=== PATIENT | male | born 1970 | race Two or more races ===

== ENCOUNTER 2020-08-23 13:44 | Emergency (ER) | payer MEDICAID, OTHER ==
[~2020-08-23] VITALS: Ht 165.1 cm; Wt 74.8 kg
[2020-08-23 13:47] VITALS: BP 130/93
[2020-08-23] MEDS ORDERED: LIDOCAINE 1% HCL (LOCAL ANESTH.) INJ 20ML MDV ONE (14:33)
[2020-08-23] MEDS ORDERED: TETANUS-DIPTH-ACEL PERTUSSIS 0.5ML SYR Tdap IM ONE (14:45)
[2020-08-23] MEDS ORDERED: cefTRIAXone SOD 1,000 MG VL IM ONE (15:45)
== END 2020-08-23 16:23 | disposition home or self-care (01) ==
LOC: ER 13:44
DX: S62.663A Nondisplaced fracture of distal phalanx of left middle finger, initial encounter for closed fracture (principal); S61.213A Laceration without foreign body of left middle finger without damage to nail, initial encounter; W22.8XXA Striking against or struck by other objects, initial encounter; Y93.89 Activity, other specified; Y92.89 Other specified places as the place of occurrence of the external cause; Y99.8 Other external cause status
CPT/HCPCS: 12002; 73140; 90471; 90715; 96372; 99284; J0696; J2001

== ENCOUNTER 2023-09-06 12:55 | Inpatient (IN) | payer BC, OTHER ==
[~2023-09-06] VITALS: Ht 165.1 cm; Wt 72.0 kg
[2023-09-06 13:41] LABS: Basophils # (auto) 0 10 ^3/uL (0-0.2); Eosinophils # (auto) 0 10 ^3/uL (0-0.8); Monocytes # (auto) 0.5 10 ^3/uL (0-1.3)
[2023-09-06 13:43] LABS: Basophils % (auto) 0.5 % (0.0-2.0); Eosinophils % (auto) 0.3 % (0.0-7.0); Hematocrit 23.2 % (41.0-53.0); Lymphocytes # (auto) 1.5 10 ^3/uL (0.4-5.4); Lymphocytes % (auto) 24.2 % (10.0-50.0); Mean Corpuscular Hemoglobin 21.1 pg (28.0-32.0); Mean Corpuscular Hgb Conc. 28.6 g/dL (32.0-36.0); Mean Corpuscular Volume 73.8 fL (80.0-100.0); Monocytes % (auto) 7.6 % (0.0-12.0); Neutrophils # (auto) 4.2 10 ^3/uL (1.6-8.6); Neutrophils % (auto) 67.4 % (37.0-80.0); Nucleated Red Blood Cells % 0.6 %; Red Blood Cells 3.14 10^6/uL (4.5-5.90); White Blood Cell 6.2 10^3/uL (4.4-10.8)
[2023-09-06 13:51] LABS: Chloride 107 mmol/L (98-107); Potassium 3.7 mmol/L (3.5-5.1); Sodium 139 mmol/L (136-145)
[2023-09-06 13:52] LABS: Anion Gap 6 (5-15); Carbon Dioxide 26 mmol/L (20-30)
[2023-09-06 13:57] LABS: Blood Urea Nitrogen 10 mg/dL (9-23); Glucose 96 mg/dL (74-106)
[2023-09-06 14:00] LABS: INR 1.06 (0.9-1.15); Partial Thromboplastin Time 24.8 SEC (24.5-34.5); Prothrombin Time 11.1 sec (9.3-11.8)
[2023-09-06 14:29] LABS: Red Cell Distribution Width 29.1 % (11.8-14.3)
[2023-09-06 14:33] LABS: Hemoglobin 6.6 g/dL (13.5-17.5)
[2023-09-06] MEDS ORDERED: DOCUSATE SOD 100 MG CAP PO PRN (15:30)
[2023-09-06] MEDS ORDERED: ONDANSETRON HCL 4 MG/2 ML VIAL IV PRN (15:30)
[2023-09-06 16:02] LABS: Hematocrit 24.1 % (41.0-53.0)
[2023-09-06 16:16] LABS: Ferritin 4.4 ng/mL (22-322)
[2023-09-06 16:17] LABS: Folate (Folic Acid) > 24.00 ng/mL (>5.38)
[2023-09-06 16:30] LABS: Hemoglobin 6.7 g/dL (13.5-17.5)
[2023-09-06 17:01] LABS: % Iron Saturation 3.3 % (20-55)
[2023-09-06 21:00] VITALS: PULSE 95; RESP 12; O2SAT 98
[2023-09-06 22:15] LABS: Hematocrit 21.1 % (41.0-53.0)
[2023-09-06 22:31] LABS: Hemoglobin 6.1 g/dL (13.5-17.5)
[2023-09-06] MEDS: PANTOPRAZOLE 40 MG/10 ML VIAL INJ IV SCH (22:39)
[2023-09-06] MEDS: SODIUM CHLORIDE 0.9% 1,000 ML IV SCH ×2 (22:48→23:50)
[2023-09-06 23:15] VITALS: BP 116/63; PULSE 90; RESP 18; TEMP 98.4
[2023-09-06 23:30] VITALS: BP 111/63; PULSE 87; RESP 16; TEMP 98.4
[2023-09-06 23:45] VITALS: BP 104/65; PULSE 73; RESP 18; TEMP 98.6
[2023-09-07] VITALS (9 sets, daily range): BP systolic 101–125; BP diastolic 63–72; PULSE 73–94; RESP 14–20; TEMP 98–98.8; O2SAT 93–95
[2023-09-07] MEDS: MORPHINE SULFATE INJ 2 MG/ml SYRG IV PRN ×2 (04:15→10:05)
[2023-09-07 06:33] LABS: Hemoglobin 8.3 g/dL (13.5-17.5); Mean Corpuscular Hemoglobin 23.6 pg (28.0-32.0)
[2023-09-07 06:36] LABS: Hematocrit 27.3 % (41.0-53.0); Mean Corpuscular Hgb Conc. 30.6 g/dL (32.0-36.0); Mean Corpuscular Volume 77.1 fL (80.0-100.0); Red Blood Cells 3.54 10^6/uL (4.5-5.90); White Blood Cell 5.7 10^3/uL (4.4-10.8)
[2023-09-07 06:39] LABS: Alanine Aminotransferase 22 U/L (7-40); Alkaline Phosphatase 54 U/L (46-116); Anion Gap 6 (5-15); BUN/Creatinine Ratio 10.1 (10.0-20.0); Blood Urea Nitrogen 9 mg/dL (9-23); Calcium 8.7 mg/dL (8.5-10.1); Carbon Dioxide 24 mmol/L (20-30); Chloride 109 mmol/L (98-107); Glucose 98 mg/dL (74-106); Potassium 3.9 mmol/L (3.5-5.1); Sodium 139 mmol/L (136-145)
[2023-09-07 06:40] LABS: Albumin 3.8 g/dL (3.2-4.8); Aspartate Aminotransferase 16 U/L (13-40); Bilirubin, Total 0.7 mg/dL (0.2-1.0)
[2023-09-07 07:27] LABS: Red Cell Distribution Width 26.4 % (11.8-14.3)
[2023-09-07 07:29] LABS: Band Neutrophils % (manual) 0; Basophils % (manual) 0 (0.0-2.0); Blast Cells 0; Metamyelocytes % 0; Myelocytes % 0; Promyelocytes % 0; Reactive Lymphocytes 0
[2023-09-07] MEDS: SODIUM CHLORIDE 0.9% 1,000 ML IV SCH ×3 (08:14→21:15)
[2023-09-07 08:17] LABS: Anisocytosis Moderate; Eosinophils % (manual) 1 (0-7); Hypochromia Moderate; Lymphocytes % (manual) 18 (10.0-50.0); Monocytes % (manual) 9 (0-12); Platelet Estimate Adequate
[2023-09-07 08:18] LABS: Ovalocytes MODERATE
[2023-09-07] MEDS: PANTOPRAZOLE 40 MG/10 ML VIAL INJ IV SCH ×2 (10:04→22:12)
[2023-09-07 10:29] LABS: Hemoglobin 8.6 g/dL (13.5-17.5)
[2023-09-07 10:31] LABS: Hematocrit 28.5 % (41.0-53.0)
[2023-09-07] MEDS: IRON SUCROSE COMPLEX 100 ML IV SCH (12:00)
[2023-09-07 22:07] LABS: Hemoglobin 8.7 g/dL (13.5-17.5)
[2023-09-08] VITALS (8 sets, daily range): BP systolic 102–117; BP diastolic 61–72; PULSE 68–79; RESP 18–20; TEMP 98.5–99.1; O2SAT 93–96
[2023-09-08 03:03] LABS: Urine Epithelial Cast None Seen /hpf (<5)
[2023-09-08 03:13] LABS: Urine Bacteria NONE SEEN /hpf (None Seen); Urine Blood Negative /uL (Negative); Urine Clarity Clear (Clear); Urine Color Colorless (Yellow); Urine Protein, UAD Negative (Negative); Urine Specific Gravity 1.009 (1.001-1.035); Urine Urobilinogen Normal (Negative); Urine WBC 1 /hpf (0 - 3); Urine pH 5.5 (5.0-8.0)
[2023-09-08] MEDS: SODIUM CHLORIDE 0.9% 1,000 ML IV SCH (04:21)
[2023-09-08] MEDS ORDERED: SODIUM CHLORIDE LOCK 10 ML ONE (08:45)
[2023-09-08] MEDS ORDERED: LIDOCAINE VISCOUS 2% 15ML UD ONE (08:45)
[2023-09-08] MEDS: PANTOPRAZOLE 40 MG/10 ML VIAL INJ IV SCH (10:16)
[2023-09-08] MEDS: IRON SUCROSE COMPLEX 100 ML IV SCH (12:00)
[2023-09-08] MEDS: MIDAZOLAM HCL 5 MG/ML-1ML VIAL ONE ×2 (12:40→12:46)
[2023-09-08] MEDS: fentaNYL CITRATE 100 MCG/2 ML VL ONE ×2 (12:40→12:46)
[2023-09-08] MEDS: diphenhdrAMINE HCL 50 MG/1 ML VL ONE ×2 (12:40→12:43)
[2023-09-08] MEDS ORDERED: GOLYTELY 4L KIT PO ONE (15:45)
[2023-09-08] MEDS ORDERED: PANT40TA2 PO (16:12)
[2023-09-08] MEDS ORDERED: FERR-7 PO (16:12)
[2023-09-09] MEDS ORDERED: MAGNESIUM CITRATE SOLUTION 300 ML BTL PO ONE (01:00)
== END 2023-09-08 17:57 | disposition home or self-care (01) | DRG 378 ==
LOC: ER 12:55 → OVERFLOW 15:35 → WEST WING 09-07 09:13
PROVIDERS: ADMIT Nurse Practitioner Family; ATTEND Nurse Practitioner Acute Care
PROC: 0DB78ZX Excision of Stomach, Pylorus, Via Natural or Artificial Opening Endoscopic, Diagnostic (ICD-10-PCS; principal; 2023-09-08 12:32)
DX: K92.1 Melena (principal); D62 Acute posthemorrhagic anemia; K64.8 Other hemorrhoids; K29.90 Gastroduodenitis, unspecified, without bleeding; N20.0 Calculus of kidney; I10 Essential (primary) hypertension; K29.70 Gastritis, unspecified, without bleeding; Z86.73 Personal history of transient ischemic attack (TIA), and cerebral infarction without residual deficits
CPT/HCPCS: 36415; 71045; 74176; 80048; 80053; 81001; 82378; 82607; 82728; 82746; 83540; 83550; 83615; 85007; 85014; 85018; 85025; 85027; 85045; 85610; 85730; 86850; 86900; 86901; 86920; 93005; C9113; G0378; J2250; J2405

== ENCOUNTER → 2024-02-08 | Day surgery (SDC) | payer BC ==
[2024-02-07 09:13] LABS: Basophils # (auto) 0 10 ^3/uL (0-0.2); Basophils % (auto) 0.5 % (0.0-2.0); Eosinophils # (auto) 0.1 10 ^3/uL (0-0.8); Eosinophils % (auto) 2.8 % (0.0-7.0); Hematocrit 41.9 % (41.0-53.0); Hemoglobin 13.8 g/dL (13.5-17.5); Lymphocytes # (auto) 1.2 10 ^3/uL (0.4-5.4); Lymphocytes % (auto) 32.8 % (10.0-50.0); Mean Corpuscular Hemoglobin 31.1 pg (28.0-32.0); Mean Corpuscular Hgb Conc. 32.9 g/dL (32.0-36.0); Mean Corpuscular Volume 94.7 fL (80.0-100.0); Monocytes # (auto) 0.4 10 ^3/uL (0-1.3); Monocytes % (auto) 9.7 % (0.0-12.0); Neutrophils % (auto) 54.2 % (37.0-80.0); Nucleated Red Blood Cells % 0.1 %; Red Blood Cells 4.42 10^6/uL (4.5-5.90); Red Cell Distribution Width 15.1 % (11.8-14.3); White Blood Cell 3.7 10^3/uL (4.4-10.8)
[2024-02-07 09:39] LABS: INR 1.01 (0.9-1.15); Partial Thromboplastin Time 26.9 SEC (24.5-34.5); Prothrombin Time 10.7 sec (9.3-11.8)
[2024-02-07 10:39] LABS: Alanine Aminotransferase 30 U/L (7-40); Albumin 4.4 g/dL (3.2-4.8); Alkaline Phosphatase 74 U/L (46-116); Anion Gap 8 (5-15); Aspartate Aminotransferase 15 U/L (13-40); BUN/Creatinine Ratio 14.3 (10.0-20.0); Bilirubin, Total 0.8 mg/dL (0.2-1.0); Blood Urea Nitrogen 12 mg/dL (9-23); Calcium 9.5 mg/dL (8.5-10.1); Carbon Dioxide 27 mmol/L (20-30); Chloride 105 mmol/L (98-107); Glucose 91 mg/dL (74-106); Sodium 140 mmol/L (136-145)
[~2024-02-08] VITALS: Ht 165.1 cm; Wt 73.5 kg
[~2024-02-08] MED LIST: FERR-7 PO; LIDOCAINE 2% JELLY 11ml (GLYDO) ONE; SODIUM CHLORIDE LOCK 10 ML ONE
[2024-02-08 10:24] VITALS: TEMP 97.4
[2024-02-08 10:58] VITALS: PULSE 69; RESP 18; O2SAT 100
[2024-02-08] MEDS: MIDAZOLAM HCL 5 MG/ML-1ML VIAL ONE (11:13)
[2024-02-08] MEDS: diphenhdrAMINE HCL 50 MG/1 ML VL ONE (11:13)
[2024-02-08] MEDS: fentaNYL CITRATE 100 MCG/2 ML VL ONE (11:13)
[2024-02-08 11:30] VITALS: PULSE 59; RESP 16; O2SAT 100
[2024-02-08 12:00] VITALS: BP 118/67; PULSE 57; RESP 14; O2SAT 94
== END | disposition home or self-care (01) ==
LOC: GI 09:24
PROVIDERS: ATTEND Internal Medicine Gastroenterology
DX: K62.5 Hemorrhage of anus and rectum (principal); K57.30 Diverticulosis of large intestine without perforation or abscess without bleeding; K64.8 Other hemorrhoids
CPT/HCPCS: 36415; 45378; 80053; 85025; 85610; 85730; J1200; J2250; J3010; 99152

== ENCOUNTER 2025-06-28 07:05 | Day surgery (SDC) | payer BC ==
[2025-06-25 12:26] LABS: Hematocrit 35.5 % (41.0-53.0); Hemoglobin 11.0 g/dL (13.5-17.5); Mean Corpuscular Hemoglobin 27.0 pg (28.0-32.0); Mean Corpuscular Volume 87.0 fL (80.0-100.0); Nucleated Red Blood Cells % 0.0 %
[2025-06-25 12:29] LABS: Urine Protein, UAD TRACE (Negative)
[2025-06-25 12:40] LABS: INR 1.01 (0.9-1.15); Partial Thromboplastin Time 26.0 SEC (24.5-34.5); Prothrombin Time 10.7 sec (9.3-11.8)
[2025-06-25 13:34] LABS: Alanine Aminotransferase 26 U/L (7-40); Alkaline Phosphatase 76 U/L (46-116); Anion Gap 10 (5-15); BUN/Creatinine Ratio 11.5 (10.0-20.0); Blood Urea Nitrogen 11 mg/dL (9-23); Calcium 9.5 mg/dL (8.7-10.4); Carbon Dioxide 30 mmol/L (20-31); Chloride 102 mmol/L (98-107); Potassium 3.8 mmol/L (3.5-5.1); Sodium 142 mmol/L (136-145); Total Protein 7.2 g/dL (5.7-8.2)
[2025-06-25 13:35] LABS: Albumin 4.5 g/dL (3.2-4.8); Bilirubin, Total 0.4 mg/dL (0.2-1.0)
[2025-06-25 13:46] LABS: Glucose 123 mg/dL (74-106)
--- NOTE | 2025-06-27 20:28 | DVHHP2 ---
History Allergies: Coded Allergies: NO KNOWN ALLERGIES (Unverified , 11/24/10) Chief Complaint: Bleeding hemorrhoids Present Illness(Onset/Duration Mr. Butler is a 54-year-old male who presents today for elective rectal exam under anesthesia and hemorrhoidectomy. Patient has been dealing with bleeding hemorrhoids for over a year. This issue caused him to get hospitalized approximately a year ago due to bleeding hemorrhoids with severe anemia, requiring transfusions. He still has bloody bowel movements with every defecation. Patient has no complaints this morning, not sick or being recently sick. Denies fevers, chills, nausea, vomiting. Noncontributory Past Surgical History Past surgical history of colonoscopy past medical history of diabetes Physical Exam Skin No jaundice Chest and Lungs Nonlabored breathing with symmetrical expansion Abdomen Flat, soft, depressible, nontender Extremities Moves all, no injuries, positive distal pulses x4 Plan Mr. Butler is a 54-year-old male who presents for elective rectal exam under anesthesia and hemorrhoidectomy. Patient has been dealing with bleeding hemorrhoids for over a year. Has no new complaints this morning and all qu estions were answered. Preoperative labs and imaging were reviewed no abnormalities noted. We will proceed with surgery as planned. LEE BOWMAN MD Jun 27, 2025 20:28
[~2025-06-28] VITALS: Ht 165.1 cm; Wt 73.9 kg
[~2025-06-28 07:05] MED LIST changes: -LIDOCAINE 2% JELLY 11ml (GLYDO) ONE; -SODIUM CHLORIDE LOCK 10 ML ONE
[2025-06-28] MEDS ORDERED: METOCLOPRAMIDE HCL 5MG/ml INJ 2ml VIAL IV PRN (07:30)
[2025-06-28] MEDS ORDERED: HYDROmorphone HCL 2 MG/ML VL/or syr IV PRN ×2 (07:30)
[2025-06-28] MEDS ORDERED: KETOROLAC TROMETH 30 MG/ML 1ML VIAL IV ONE (07:30)
[2025-06-28] MEDS ORDERED: MORPHINE SULFATE 4 MG/ML SYR/VIAL IV PRN (07:30)
[2025-06-28] MEDS ORDERED: MORPHINE SULFATE INJ 2 MG/ml SYRG IV PRN (07:30)
[2025-06-28] MEDS ORDERED: MEPERIDINE HCL (25 MG/ML) 1ML VIAL ONE (07:40)
[2025-06-28] MEDS ORDERED: MIDAZOLAM HCL 2MG/2ML 2ml VIAL (1mg/ml) ONE (07:40)
[2025-06-28] MEDS ORDERED: LIDOCAINE HCL 2% TOP JELLY 5ML TOP ONE (07:40)
[2025-06-28] MEDS ORDERED: ONDANSETRON HCL 4 MG/2 ML VIAL ONE (07:40)
[2025-06-28] MEDS ORDERED: PROPOFOL 10 MG/ML 20 ML IV ONE (07:40)
[2025-06-28] MEDS ORDERED: ROCURONIUM 10MG/ML 10ML VIAL IV ONE (07:40)
[2025-06-28] MEDS ORDERED: SODIUM CHLORIDE LOCK 10 ML ONE (07:40)
[2025-06-28] MEDS ORDERED: fentaNYL CITRATE 100 MCG/2 ML VL ONE (07:40)
[2025-06-28] MEDS ORDERED: GELATIN 1 SPONGE SIZE 50 TOP ONE (07:40)
[2025-06-28] MEDS ORDERED: LIDOCAINE 1% INJ PF 5ML AMP ONE (07:40)
[2025-06-28] MEDS ORDERED: KETAMINE 50mg/ML 1ml syringe ONE (07:48)
[2025-06-28] MEDS: ceFAZolin 2 GM/D5W50ml 50 ML IV ONE (08:22)
[2025-06-28] MEDS: LIDOCAINE 1% HCL (LOCAL ANESTH.) INJ 20ML MDV ONE (08:52)
[2025-06-28] MEDS: BUPIVACAINE 0.25% INJ 50ML VIAL ONE (08:52)
--- NOTE | 2025-06-28 09:55 | DVHOP2 ---
Operative Report - 2 Report Details Date: 06/28/25 Preop Diagnosis: Hemorrhoids Postop Diagnosis: 3 column hemorrhoids Surgeon: Luis M Plunkett MD Journeyman Wireman: Eze Lugo NP Anesthesiologist: Dr. Gunter Anesthesia: General Consent: The patient was informed of the risks and benefits of the procedure. These include but are not limited to complications of anesthesia, postoperative infection, incomplete relief of symptoms, recurrence of symptoms, damage to blood vessels, nerves and tendons, deep venous thrombosis, pulmonary embolism and possible need for repeat surgery in the future. Complications: None Estimated Blood Loss: 15 mL Findings: 3: Hemorrhoids, large and inflamed right posterior hemorrhoidal column, large and inflamed left lateral hemorrhoidal column, medium-sized and inflamed right anterior: Indications for Surgery: Bleeding hemorrhoids, also causing pain and discomfort Name of Procedure Performed Two-column Yoel Norman hemorrhoidectomy Procedure Details Procedure Details: Upon arriving to the operating room the patient was transferred to the operating table and placed in the supine position. General endotracheal anesthesia was induced. Patient was then placed in the prone vannesa-knife position. Time-out was observed. Patient was prepped and draped in the standard sterile surgical fashion with Betadine-Betadine. I then proceeded to perform a digital rectal exam, no masses no strictures noted. I then serially dilated the anus with Crum retractors, until I was able to fit the large size retractor. I then noted that the patient had 3 column hemorrhoids, the right posterior hemorrhoidal column was large/inflamed, the right anterior hemorrhoidal column was medium-sized and inflamed, and the left lateral hemorrhoidal column was large in size and inflamed; all hemorrhoids were internal. I decided to remove the 2 largest hemorrhoidal columns, which was the right posterior and the left lateral column. First I directed my attention to the right posterior hemorrhoidal column, I placed a 3 0 chromic suture at the apex of the hemorrhoidal column in [id number]-[id number] fashion. I then grasped the entire hemorrhoid with a DeBakey forceps, and demarcated the hemorrhoid with a 15 blade. I then proceeded to remove the hemorrhoidal column with a combination of blunt dissection, LigaSure device and Metzenbaum scissors; while lifting it off from the sphincter complex. Once the hemorrhoidal column was removed it was passed as specimen. I then achieved hemostasis at the base of the removed hemorrhoid with cautery. I then directed my attention to the left lateral hemorrhoidal column. I then proceeded to remove the hemorrhoidal column in the same fashion as previous. Hemostasis on the base of the left lateral hemorrhoidal colon was also achieved with cautery. I then proceeded to inspect the right anterior hemorrhoidal column, and decided not to remove it given that it would increase the risk of anal stenosis. I then proceeded to irrigate the anal canal, and noted some bleeding from the apex of the right posterior hemorrhoidal column. I then placed a 2nd [id number] suture around the apex with 3-0 chromic, hemostasis achieved. I then irrigated the anal canal with sterile saline again, no additional bleeding noted. I then performed a perianal block with a combination 1% lidocaine and 0.25% Marcaine. I then packed the anal canal with surgifoam. Area was dressed with 4 x 4 gauze ABD pad and tape. All counts complete and correct at the end of procedure. Patient tolerated the procedure well and was transferred to PACU in stable condition. Specimen: Hemorrhoidal columns x2 Condition Stable Disposition Home LUIS M BOWMAN MD Jun 28, 2025 09:55
[2025-06-28 10:01] VITALS: PULSE 85; RESP 12; TEMP 97; O2SAT 96
[2025-06-28 10:16] VITALS: PULSE 81; RESP 13; O2SAT 100
[2025-06-28 12:40] VITALS: BP 126/74; PULSE 79; RESP 12; O2SAT 97
== END 2025-06-28 13:16 | disposition home or self-care (01) ==
LOC: SUR 07:05
PROVIDERS: ATTEND Student in an Organized Health Care Education/Training Program
DX: K64.8 Other hemorrhoids (principal); D64.9 Anemia, unspecified; E11.9 Type 2 diabetes mellitus without complications; E78.5 Hyperlipidemia, unspecified; Z79.899 Other long term (current) drug therapy; Z86.73 Personal history of transient ischemic attack (TIA), and cerebral infarction without residual deficits; Z86.2 Personal history of diseases of the blood and blood-forming organs and certain disorders involving the immune mechanism; Z98.890 Other specified postprocedural states
CPT/HCPCS: 36415; 46260; 80053; 81001; 85025; 85610; 85730; J0690; J2003; J2175; J2250; J2405; J2704; J3010; J3490